=== PATIENT | female | born 1965 | race Caucasian/White ===

== ENCOUNTER 2024-01-03 20:57 | Emergency (ER) | payer OTHER, SELFPAY ==
--- NOTE | ~2024-01-03 | CT_ITS ---
CT of the Abdomen and Pelvis: Indication: Abdominal pain Technique: 2.5 mm axial scans were obtained through the abdomen and pelvis following intravenous adm inistration of 100 cc of Omnipaque 350. Dose reduction technique was used on this scan by utilizing a utomated exposure control and iterative reconstruction technique. The dose-length product (DLP) was 7 91.05 mGy-cm. Findings: Scans through the lung bases demonstrate small to moderate hiatal hernia. The liver, spleen, pancreas, adrenals and kidneys are within normal limits. Gallbladder absent. No ev idence of aortic aneurysm. No lymphadenopathy. There is evidence of prior bariatric surgery. No bowel obstruction or bowel wall thickening. There is no evidence to suggest acute appendicitis. Images through the pelvis were performed. Urinary bladder unremarkable. No adnexal mass seen. No asci angel. Impression: [id number] hiatal hernia. Postoperative changes, as above. Reviewed, dictated and finalized at [facility] and [facility]. Impression: [id number] hiatal hernia. Postoperative changes, as above.
[2024-01-03 21:16] VITALS: BP 137/74; PULSE 67; RESP 20; TEMP 36.2; O2SAT 100
--- NOTE | 2024-01-03 23:03 | ED.ABDPAIN ---
HPI - Abdominal Pain General Chief Complaint: Abdominal Pain Stated Complaint: foul smelling bellybutton Time Seen by Provider: 01/03/24 22:46 Source: patient Mode of arrival: ambulatory Limitations: no limitations History of Present Illness HPI narrative: 58-year-old female presenting for an abnormal sensation inside of her umbilicus. She has had multiple mesh in implants for umbilical hernias in the past and is concerned there may be a problem with it. It has been going on for a month. She states she found a piece of something that was dark and wet inside of her umbilicus a month ago and has since been sticking Q-tips in her umbilicus in saying that they smell bad. Feels mildly bloated but no significant pain. No nausea, vomiting, diarrhea. Related Data Home Medications Medication Instructions Recorded Confirmed cholestyramine (with sugar) 4 gram 4 gm PO BID 07/23/19 12/05/23 oral powder cyanocobalamin (vitamin B-12) 1,000 mcg PO DAILY 04/18/22 12/05/23 1,000 mcg tablet Allergies Allergy/AdvReac Type Severity Reaction Status Date / Time Penicillins AdvReac Severe Diarrhea Verified 01/03/24 21:25 Review of Systems Review of Systems: All systems reviewed & are unremarkable except as noted in HPI and below PMFSH Past Medical History Medical History Acute non-recurrent maxillary sinusitis Blood in urine urinalysis normal on 11/13/2023. BMI 27.0-27.9,adult BMI 29.0-29.9,adult Breast cancer screening by mammogram Chronic diarrhea Low thyroid stimulating hormone (TSH) level (10/09/22) TSH less than 0.015 on 10/09/2022. TSH 1.25, free T4 1.01, T3 total 1.19 on 05/11/2023. Malabsorption Iron 92 with 26% saturation and ferritin 18 With zinc 144 on 05/11/2023. Microalbuminuria absent microalbumin ratio of 5 on 09/19/2021. Microalbumin ratio not calculated due to low microalbumin 10/09/2022. Ratio normal at 19 on 11/13/2023. Obstructive sleep apnea resolved with weight loss Overweight (BMI 25.0-29.9) Vitamin B12 deficiency (04/07/22) level low at 276 with goal greater than 400 with hemoglobin 12.2 on 04/07/2022. Level normal at greater than 1000 with folic acid 20 and hemoglobin 13.6 on 10/09/2022. Level normal at greater than 1000 with folic acid greater than 20, hemoglobin 13.2 on 05/11/2023. Level greater than 1000 with hemoglobin 12.3 on 08/14/2024. Surgical History Surgical History History of Billroth II operation Family History Family History Father Family history of thyroid disease Family history of obesity Depression Family history of cataracts Family history of anemia Family history of arthritis Family history of kidney disease Family history of diabetes mellitus in first degree relative Family history of congestive heart failure Family history of heart disease in male family member before age 55 Diabetes mellitus Hypertension Family history of cardiovascular disease, Onset Age: 77 Family history of renal failure, Onset Age: 77 Grandparent Family history of thyroid disease Family history of cataracts Family history of anemia Cerebrovascular accident, Onset Age: 84 Family history of heart disease in male family member before age 55 Diabetes mellitus Family history of mental disorder Depression, Onset Age: 85 Family history of cardiovascular disease Family history of malignant neoplasm of cervix Sibling Family history of obesity Family history of mental disorder Depression Family history of migraine headaches Asthma Family history of diabetes mellitus in first degree relative Family history of hearing loss Family history of development disorder Patient's brother is in good health Family history of cardiovascular disease Mother Family history of osteoporosis Family hi
[2024-01-03 23:25] VITALS: BP 109/61; PULSE 66; RESP 16; TEMP 37; O2SAT 100
[2024-01-03 23:48] LABS: Appearance Urine Clear (Clear); Bacteria Urine None Seen /hpf; Bilirubin Urine Negative (Negative); Blood Urine Negative (Negative); Color Urine Dark Yellow (Yellow); Glucose Urine UA Negative (Negative); Hyaline Casts Urine Present /lpf; Ketones Urine Trace mg/dL (Negative); Leukocyte Esterase Ur Trace LEU/UL (Negative); Mucus Urine Present /lpf; Need Manual Microscopic Reviewed; Nitrate Urine Negative (Negative); Protein Urine Negative (Negative); Squamous Epithelial Cell Urine Occasional /hpf (Few); WBC Urine 0-5 /hpf (0-3); pH Urine 5.5 (5.0-9.0)
[2024-01-03 23:49] LABS: Basophils Percent Auto 0.5 % (0.2-1.2); Eosinophils Absolute Auto 0.2 K/mm3 (0-0.3); Hematocrit 40.6 % (37.0-47.0); Hemoglobin 13.1 g/dL (12.0-15.0); Immature Granulocyte Absolute 0.02 K/mm3 (0.00-0.031); Immature Granulocyte Percent A 0.3 % (0-0.5); Lymphocytes Absolute Auto 3.26 K/mm3 (0.9-3.2); Lymphocytes Percent Auto 42.4 % (18.3-44.2); Mean Corpuscular HGB Conc 32.3 g/dl (32-36); Mean Corpuscular Hemoglobin 30.3 pg (26-34); Monocytes Absolute Auto 0.6 K/mm3 (0.1-0.6); Monocytes Percent Auto 7.3 % (2.6-8.5); Neutrophils Absolute Auto 3.7 K/mm3 (1.3-6.7); Neutrophils Percent Auto 47.5 % (45.5-73.1); Platelet Count Result 356 k/mm3 (150-375); Red Blood Count 4.32 M/mm3 (4.2-5.4); Red Cell Distribution Width 14.1 % (11.5-14.5); White Blood Count 7.7 K/mm3 (4.5-10.0)
[2024-01-03 23:54] LABS: Add Urine Microscopic? YES; Specific Grav Ur 1.032 (1.001-1.035)
[2024-01-03 23:59] LABS: Alanine Aminotransferase 31 U/L (6-35); Albumin Level 4.6 g/dL (3.5-5.1); Alkaline Phosphatase 91 U/L (38-126); Anion Gap 7 mmol/L (4-12); Aspartate Amino Transferase 35 U/L (14-36); Bilirubin,Total 0.5 mg/dL (0.2-1.3); Blood Urea Nitrogen 12 mg/dL (7-17); Calcium 9.9 mg/dL (8.4-10.2); Carbon Dioxide 28 mmol/L (22-30); Chloride 106 mmol/L (98-107); Estimated CRCL calculation 85 ml/min; Estimated Glomerular Filt Rate > 60; Glucose 108 mg/dL (65-110); Lipase 169 U/L (23-300); Potassium 4.1 mmol/L (3.4-5.0); Sodium 141 mmol/L (137-145)
[2024-01-04 01:29] VITALS: BP 125/67; PULSE 65; RESP 15; O2SAT 98
== END 2024-01-04 02:41 | disposition home or self-care (01) ==
PROVIDERS: Emergency Medicine; Emergency Provider Emergency Medicine; PCP Family Medicine
DX: N39.0 Urinary tract infection, site not specified (principal); G47.33 Obstructive sleep apnea (adult) (pediatric); E66.3 Overweight; Z68.29 Body mass index [BMI] 29.0-29.9, adult; E53.8 Deficiency of other specified B group vitamins
CPT/HCPCS: 36415; 74177; 80053; 81001; 81025; 83690; 85025; 99284; Q9967